=== PATIENT | female | born 1980 | race Caucasian/White ===

== ENCOUNTER 2021-03-07 17:44 | Emergency (ER) | payer MEDICAID | END 2021-03-07 18:33 | disposition home or self-care (01) | LOC: JP.ED 17:44 | DX: S61.111A Laceration without foreign body of right thumb with damage to nail, initial encounter (principal); R55 Syncope and collapse; Z72.0 Tobacco use; Z79.899 Other long term (current) drug therapy; W26.8XXA Contact with other sharp object(s), not elsewhere classified, initial encounter | CPT/HCPCS: 12001; 99283-25 ==